=== PATIENT | female | born 1990 | race Caucasian/White ===

== ENCOUNTER 2020-09-09 14:05 | Emergency (ER) | payer OTHER ==
[~2020-09-09] VITALS: Ht 149.9 cm; Wt 63.5 kg
[2020-09-09 14:22] VITALS: Ht 149.9 cm; Wt 63.5 kg
[2020-09-09 14:42] VITALS: BP 135/81
== END 2020-09-09 14:42 | disposition home or self-care (01) ==
LOC: ED 14:05
DX: K08.89 Other specified disorders of teeth and supporting structures (principal); Z88.6 Allergy status to analgesic agent; Z88.5 Allergy status to narcotic agent

== ENCOUNTER 2020-09-27 11:31 | Emergency (ER) | payer OTHER ==
[~2020-09-27] VITALS: Ht 152.4 cm; Wt 66.7 kg
[2020-09-27 11:38] VITALS: Ht 152.4 cm; Wt 66.7 kg
[2020-09-27 12:25] VITALS: BP 130/74
== END 2020-09-27 12:25 | disposition home or self-care (01) ==
LOC: ED 11:31
DX: K04.7 Periapical abscess without sinus (principal); Z88.5 Allergy status to narcotic agent; Z88.6 Allergy status to analgesic agent